=== PATIENT | female | born 1985 | race African-American/Black ===

== ENCOUNTER 2017-05-03 14:35 | Emergency (ER) | payer OTHER ==
[~2017-05-03] VITALS: Wt 69.9 kg
[~2017-05-03 14:35] MED LIST: ALBUTEROL0.09 MG/A2 IH; ALBUTEROL2.5 MG/0.5 INH; BENADRYL ALLERG25 M5 PO; CIPROFLOXACIN500 MG PO; CLARITIN10 MG PO; CLEOCIN150 MG PO; CYCLOBENZAPRINE10 MG PO; DELTASONE20 M1 PO; EES400 MG PO; ERY-TAB500 MG PO; ERYTHROCIN PO; FLEXERIL10 MG PO; FLONASE ALLERG9.9 ML NAS; HYDR12.5C PO; HYDROCODONE BIT1 T11 PO; IBU-8800 MG PO; MEDROL DOSEPAK4 MG PO; MOTRIN600 MG PO; MOTRIN800 MG PO; Motrin,Rufen800 MG PO; NAPROSYN500 MG PO; NORCO 325 MG-51 TAB PO; PARAFON FORTE500 MG PO; PEPCID20 MG PO; PNV-SELECT1 TAB PO; PREDNICOT10 MG PO; PREDNICOT20 MG PO; PREDNISONE10 MG PO; PRENATAL1 TA4 PO; ROBITUSSIN AC 110 ML PO; TRAMADOL HCL50 MG PO; TYLENOL500 MG PO; ULTRAM50 MG PO; VENTOLIN H0.09 MG/AC INH; VICODIN ES 7501 TAB PO; Xylocaine 2% Jel5 ML T
[2017-05-03 14:41] VITALS: BP 138/90
[2017-05-03] MEDS ORDERED: GOOD NEIGHBOR L10 MG PO (14:42)
[2017-05-03 15:57] LABS: BILIRUBIN NEGATIVE (NEGATIVE); BLOOD NEGATIVE (NEGATIVE); CLARITY CLEAR (CLEAR); COLOR YELLOW (YELLOW); GLUCOSE NEGATIVE (NEGATIVE); KETONE NEGATIVE (NEGATIVE); LEUKO ESTERASE NEGATIVE (NEGATIVE); NITRITE NEGATIVE (NEGATIVE); PROTEIN NEGATIVE (NEGATIVE); SPECIFIC GRAVITY <= 1.005 (1.005-1.030); UROBILINOGEN 0.2 E.U./dl (0.2-1.0)
[2017-05-03 16:06] LABS: RBC 0-2 rbc/hpf (0-2)
[2017-05-03 16:07] LABS: BACTERIA TRACE; EPITHELIAL CELLS 0-2; URINE REFLEX COMMENT NO (NO); WBC 0-2 wbc/hpf (0-5)
[2017-05-03] MEDS ORDERED: CYCLOBENZAPRINE5 M3 PO (16:36)
== END 2017-05-03 16:40 | disposition home or self-care (01) ==
LOC: ED 14:35
PROVIDERS: Nurse Practitioner Family
DX: H65.92 Unspecified nonsuppurative otitis media, left ear (principal); J45.909 Unspecified asthma, uncomplicated; I10 Essential (primary) hypertension; F17.200 Nicotine dependence, unspecified, uncomplicated; Z88.0 Allergy status to penicillin; Z88.1 Allergy status to other antibiotic agents; Z91.013 Allergy to seafood; Z79.899 Other long term (current) drug therapy

== ENCOUNTER → 2017-05-04 | Outpatient (CLI) | payer OTHER ==
[~2017-05-04] MED LIST changes: +CYCLOBENZAPRINE5 M3 PO; +GOOD NEIGHBOR L10 MG PO
[2017-05-04 15:06] LABS: BASO % 0.5 % (0.0-1.0); EOS # 0.1 10*3/uL (0.0-0.4); EOS % 2.8 % (1.0-4.0); HEMATOCRIT 33.5 % (37.0-47.0); HEMOGLOBIN 10.6 g/dl (12.0-16.0); LYMPH # 1.5 10*3/uL (1.3-4.4); LYMPH % 37.7 % (27.0-41.0); MEAN CELL VOLUME 86.8 fl (81.0-99.0); MEAN CORPUSCULAR HGB 27.5 pg (27.0-31.0); MEAN CORPUSCULAR HGB CONC 31.6 g/dl (33.0-37.0); MONO # 0.3 10*3/uL (0.1-1.0); MONO % 8.2 % (3.0-9.0); NEUT % 50.8 % (47.0-73.0); PLATELET COUNT AUTOMATED 289 10*3/uL (130-400); RED BLOOD COUNT 3.86 10*6/uL (4.10-5.10); RED CELL DISTRI WIDTH 18.6 % (0-14.5); WHITE BLOOD COUNT 3.9 10*3/uL (4.8-10.8)
[2017-05-04 15:35] LABS: ALBUMIN 3.4 gm/dl (3.1-4.5); BUN 7 mg/dl (7-24); CARBON DIOXIDE 29 mmol/L (21-32); CHLORIDE 105 mmol/L (98-107); EST GLOM FILT AFRICAN AMERICAN > 60 ml/min; GLUCOSE 74 mg/dL (65-99); POTASSIUM 3.9 mmol/L (3.5-5.1); SGOT/AST 13 IU/L (3-35); SGPT/ALT 14 U/L (12-78); SODIUM 141 mmol/L (136-145)
[2017-05-04 15:44] LABS: ALKALINE PHOSPHATASE 39 U/L (45-117); BILIRUBIN, TOTAL 0.5 mg/dl (0.2-1.0); FREE T4 0.86 ng/dl (0.76-1.46); TOTAL PROTEIN 6.9 gm/dL (6.4-8.2)
== END | disposition home or self-care (01) ==
LOC: LAB 14:33
PROVIDERS: Family Medicine
DX: M19.90 Unspecified osteoarthritis, unspecified site (principal); D50.9 Iron deficiency anemia, unspecified

== ENCOUNTER 2017-07-05 14:53 | Emergency (ER) | payer OTHER ==
[~2017-07-05] VITALS: Ht 170.1 cm; Wt 63.5 kg
[2017-07-05 15:01] VITALS: BP 147/87
[2017-07-05 15:29] LABS: BILIRUBIN NEGATIVE (NEGATIVE); BLOOD NEGATIVE (NEGATIVE); CLARITY CLEAR (CLEAR); COLOR YELLOW (YELLOW); GLUCOSE NEGATIVE (NEGATIVE); KETONE NEGATIVE (NEGATIVE); LEUKO ESTERASE NEGATIVE (NEGATIVE); NITRITE NEGATIVE (NEGATIVE); PH 5.5 (5.0-9.0); PROTEIN NEGATIVE (NEGATIVE); SPECIFIC GRAVITY <= 1.005 (1.005-1.030); UROBILINOGEN 0.2 E.U./dl (0.2-1.0)
[2017-07-05 15:41] LABS: BACTERIA TRACE; EPITHELIAL CELLS 0-2; RBC 0-2 rbc/hpf (0-2); URINE REFLEX COMMENT NO (NO); WBC 0-2 wbc/hpf (0-5)
[2017-07-05] MEDS ORDERED: MEDROL DOSEPAK4 MG PO (16:42)
[2017-07-05] MEDS ORDERED: CYCLOBENZAPRINE5 M3 PO (16:42)
== END 2017-07-05 16:52 | disposition home or self-care (01) ==
LOC: ED 14:53
PROVIDERS: Physician Assistant
DX: S39.012A Strain of muscle, fascia and tendon of lower back, initial encounter (principal); M62.838 Other muscle spasm; M54.2 Cervicalgia; M62.830 Muscle spasm of back; F17.200 Nicotine dependence, unspecified, uncomplicated; Z88.0 Allergy status to penicillin; Z88.1 Allergy status to other antibiotic agents; Z91.013 Allergy to seafood; Z79.899 Other long term (current) drug therapy; W19.XXXA Unspecified fall, initial encounter; Y93.9 Activity, unspecified; Y92.9 Unspecified place or not applicable; Y99.9 Unspecified external cause status

== ENCOUNTER → 2017-12-26 | Outpatient (CLI) | payer OTHER | END | disposition home or self-care (01) | LOC: RAD 10:38 | DX: M54.5 Low back pain (principal) ==

== ENCOUNTER 2018-02-17 20:05 | Emergency (ER) | payer OTHER ==
[~2018-02-17] VITALS: Ht 170.1 cm; Wt 68.0 kg
[2018-02-17 20:06] VITALS: BP 145/93
[2018-02-17 21:00] LABS: BILIRUBIN NEGATIVE (NEGATIVE); BLOOD NEGATIVE (NEGATIVE); CLARITY SL CLOUDY (CLEAR); COLOR YELLOW (YELLOW); GLUCOSE NEGATIVE (NEGATIVE); KETONE NEGATIVE (NEGATIVE); LEUKO ESTERASE NEGATIVE (NEGATIVE); NITRITE NEGATIVE (NEGATIVE); SPECIFIC GRAVITY 1.015 (1.005-1.030)
[2018-02-17 21:23] LABS: BACTERIA TRACE
[2018-02-17 21:24] LABS: RBC 0-2 rbc/hpf (0-2)
[2018-02-17] MEDS ORDERED: MEDROL DOSEPAK4 MG PO (22:19)
[2018-02-17] MEDS ORDERED: CYCLOBENZAPRINE5 M3 PO (22:19)
== END 2018-02-17 22:26 | disposition home or self-care (01) ==
LOC: ED 20:05
PROVIDERS: Nurse Practitioner Family
DX: S39.012A Strain of muscle, fascia and tendon of lower back, initial encounter (principal); J45.909 Unspecified asthma, uncomplicated; I10 Essential (primary) hypertension; R73.9 Hyperglycemia, unspecified; E83.51 Hypocalcemia; F10.10 Alcohol abuse, uncomplicated; Z88.0 Allergy status to penicillin; Z91.041 Radiographic dye allergy status; Z88.1 Allergy status to other antibiotic agents; Z88.8 Allergy status to other drugs, medicaments and biological substances; Z79.899 Other long term (current) drug therapy; X58.XXXA Exposure to other specified factors, initial encounter; Y93.89 Activity, other specified; Y92.89 Other specified places as the place of occurrence of the external cause; Y99.8 Other external cause status

== ENCOUNTER 2018-03-07 11:23 | Emergency (ER) | payer OTHER ==
[~2018-03-07] VITALS: Ht 170.1 cm; Wt 68.0 kg
[2018-03-07] MEDS ORDERED: ROBAXIN500 M1 PO (14:28)
[2018-03-07] MEDS ORDERED: PREDNISONE20 M1 PO (14:28)
[2018-03-07 14:30] VITALS: BP 142/78
== END 2018-03-07 14:30 | disposition home or self-care (01) ==
LOC: ED 11:23
DX: M54.41 Lumbago with sciatica, right side (principal); Z88.0 Allergy status to penicillin; Z88.1 Allergy status to other antibiotic agents; Z91.013 Allergy to seafood; Z79.899 Other long term (current) drug therapy

== ENCOUNTER 2019-07-06 18:24 | Emergency (ER) | payer MEDICAID ==
[~2019-07-06] VITALS: Ht 170.1 cm; Wt 68.0 kg
[~2019-07-06 18:24] MED LIST changes: +PREDNISONE20 M1 PO; +ROBAXIN500 M1 PO; +VISTARIL25 MG PO
[2019-07-06 18:25] VITALS: BP 135/80
[2019-07-06] MEDS ORDERED: CLINDAMYCIN HC300 MG PO (18:44)
[2019-07-06] MEDS ORDERED: ZYRTEC10 MG PO (18:44)
[2019-07-06] MEDS ORDERED: CLARITIN10 MG PO (18:44)
== END 2019-07-06 18:45 | disposition home or self-care (01) ==
LOC: ED 18:24
DX: T78.40XA Allergy, unspecified, initial encounter (principal); R51 Headache; J45.909 Unspecified asthma, uncomplicated; F17.200 Nicotine dependence, unspecified, uncomplicated; Z88.0 Allergy status to penicillin; Z88.1 Allergy status to other antibiotic agents; Z91.013 Allergy to seafood; X58.XXXA Exposure to other specified factors, initial encounter

== ENCOUNTER 2019-07-28 12:26 | Emergency (ER) | payer MEDICAID ==
[~2019-07-28] VITALS: Ht 170.1 cm; Wt 68.0 kg
[~2019-07-28 12:26] MED LIST changes: +CLINDAMYCIN HC300 MG PO; +ZYRTEC10 MG PO
[2019-07-28 12:29] VITALS: BP 121/71
[2019-07-28] MEDS ORDERED: NAPROSYN500 MG PO (13:13)
[2019-07-28] MEDS ORDERED: ROBAXIN500 M1 PO (13:13)
[2019-07-28] MEDS ORDERED: MEDROL DOSEPAK4 MG PO (13:13)
== END 2019-07-28 14:00 | disposition home or self-care (01) ==
LOC: ED 12:26
DX: M54.41 Lumbago with sciatica, right side (principal); Z88.0 Allergy status to penicillin; Z88.1 Allergy status to other antibiotic agents; Z91.041 Radiographic dye allergy status; Z91.013 Allergy to seafood; Z79.899 Other long term (current) drug therapy; Z79.2 Long term (current) use of antibiotics

== ENCOUNTER 2019-09-20 15:59 | Emergency (ER) | payer MEDICAID ==
[~2019-09-20] VITALS: Ht 170.1 cm; Wt 70.8 kg
[2019-09-20 15:59] VITALS: BP 136/76
[2019-09-20] MEDS ORDERED: PREDNISONE20 M1 PO (16:29)
== END 2019-09-20 17:33 | disposition home or self-care (01) ==
LOC: ED 15:59
DX: M54.5 Low back pain (principal); G89.29 Other chronic pain; F17.200 Nicotine dependence, unspecified, uncomplicated; Z88.0 Allergy status to penicillin; Z88.1 Allergy status to other antibiotic agents; Z88.8 Allergy status to other drugs, medicaments and biological substances; Z91.041 Radiographic dye allergy status; Z91.013 Allergy to seafood; Z79.2 Long term (current) use of antibiotics; Z79.899 Other long term (current) drug therapy

== ENCOUNTER 2019-11-19 17:19 | Emergency (ER) | payer OTHER ==
[~2019-11-19] VITALS: Ht 170.1 cm; Wt 70.3 kg
[2019-11-19 17:20] VITALS: BP 115/65
[2019-11-19 17:46] LABS: BASO % 0.4 % (0.0-1.0); HEMATOCRIT 28.9 % (37.0-47.0); LYMPH # 0.2 10*3/uL (1.3-4.4); LYMPH % 7.4 % (27.0-41.0); MEAN CORPUSCULAR HGB 26.2 pg (27.0-31.0); MEAN CORPUSCULAR HGB CONC 31.1 g/dl (33.0-37.0); MEAN PLATELET VOLUME 9.7 fl (9.6-12.3); MONO # 0.2 10*3/uL (0.1-1.0); MONO % 6.9 % (3.0-9.0); NEUT % 84.9 % (47.0-73.0); PLATELET COUNT AUTOMATED 203 10*3/uL (130-400); RED BLOOD COUNT 3.44 10*6/uL (4.10-5.10); RED CELL DISTRI WIDTH 17.4 % (0-14.5); WHITE BLOOD COUNT 2.3 10*3/uL (4.8-10.8)
[2019-11-19 18:05] LABS: ALBUMIN 3.7 gm/dl (3.1-4.5); ALKALINE PHOSPHATASE 34 U/L (45-117); BUN 5 mg/dl (7-24); CHLORIDE 106 mmol/L (98-107); CREATININE 0.89 mg/dL (0.55-1.02); POTASSIUM 3.2 mmol/L (3.5-5.1); SGOT/AST 15 IU/L (3-35); SGPT/ALT 18 U/L (12-78); SODIUM 138 mmol/L (136-145); TOTAL PROTEIN 7.2 gm/dL (6.4-8.2)
[2019-11-19 18:09] LABS: BILIRUBIN NEGATIVE (NEGATIVE); BLOOD NEGATIVE (NEGATIVE); CLARITY CLEAR (CLEAR); COLOR YELLOW (YELLOW); GLUCOSE NEGATIVE (NEGATIVE); KETONE NEGATIVE (NEGATIVE); LEUKO ESTERASE NEGATIVE (NEGATIVE); NITRITE NEGATIVE (NEGATIVE); SPECIFIC GRAVITY <= 1.005 (1.005-1.030); UROBILINOGEN 0.2 E.U./dl (0.2-1.0)
[2019-11-19 18:17] LABS: BACTERIA TRACE; EPITHELIAL CELLS 0-2
== END 2019-11-19 18:57 | disposition home or self-care (01) ==
LOC: ED 17:19
PROVIDERS: Physician Assistant
DX: J10.1 Influenza due to other identified influenza virus with other respiratory manifestations (principal); J45.909 Unspecified asthma, uncomplicated; I10 Essential (primary) hypertension; Z88.0 Allergy status to penicillin; Z88.1 Allergy status to other antibiotic agents; Z91.041 Radiographic dye allergy status; Z91.013 Allergy to seafood; Z79.899 Other long term (current) drug therapy; Z79.2 Long term (current) use of antibiotics

== ENCOUNTER 2020-01-28 11:18 | Emergency (ER) | payer OTHER ==
[2020-01-28 11:21] VITALS: BP 136/82
[2020-01-28 11:56] LABS: HEMATOCRIT 31.2 % (37.0-47.0); HEMOGLOBIN 9.5 g/dl (12.0-16.0); MEAN CORPUSCULAR HGB 25.3 pg (27.0-31.0); MEAN CORPUSCULAR HGB CONC 30.4 g/dl (33.0-37.0); MEAN PLATELET VOLUME 9.8 fl (9.6-12.3); PLATELET COUNT AUTOMATED 213 10*3/uL (130-400); RED BLOOD COUNT 3.76 10*6/uL (4.10-5.10); RED CELL DISTRI WIDTH 17.5 % (0-14.5)
[2020-01-28 11:58] LABS: WHITE BLOOD COUNT 1.4 10*3/uL (4.8-10.8)
[2020-01-28 12:08] LABS: ALBUMIN 3.9 gm/dl (3.1-4.5); ALKALINE PHOSPHATASE 39 U/L (45-117); BUN 9 mg/dl (7-24); CHLORIDE 105 mmol/L (98-107); CREATININE 0.96 mg/dL (0.55-1.02); POTASSIUM 3.7 mmol/L (3.5-5.1); SGOT/AST 14 IU/L (3-35); SGPT/ALT 19 U/L (12-78); SODIUM 137 mmol/L (136-145); TOTAL PROTEIN 7.8 gm/dL (6.4-8.2)
[2020-01-28 12:22] LABS: TARGET CELLS FEW; TOTAL CELLS COUNTED 100 #CELLS
[2020-01-28 12:23] LABS: OVALOCYTES FEW; PLATELET SUFFICIENCY NORMAL (NORMAL)
== END 2020-01-28 13:04 | disposition home or self-care (01) ==
LOC: ED 11:18
PROVIDERS: Nurse Practitioner Family
DX: B34.9 Viral infection, unspecified (principal); I10 Essential (primary) hypertension; J45.909 Unspecified asthma, uncomplicated; F17.200 Nicotine dependence, unspecified, uncomplicated; Z88.0 Allergy status to penicillin; Z88.1 Allergy status to other antibiotic agents; Z91.013 Allergy to seafood

== ENCOUNTER → 2020-01-30 | Outpatient (CLI) | payer OTHER ==
[2020-01-30 14:51] LABS: HEMATOCRIT 31.4 % (37.0-47.0); HEMOGLOBIN 9.5 g/dl (12.0-16.0); MEAN CELL VOLUME 83.7 fl (81.0-99.0); MEAN CORPUSCULAR HGB 25.3 pg (27.0-31.0); MEAN CORPUSCULAR HGB CONC 30.3 g/dl (33.0-37.0); MEAN PLATELET VOLUME 10.7 fl (9.6-12.3); PLATELET COUNT AUTOMATED 216 10*3/uL (130-400); RED BLOOD COUNT 3.75 10*6/uL (4.10-5.10); RED CELL DISTRI WIDTH 17.6 % (0-14.5); WHITE BLOOD COUNT 2.4 10*3/uL (4.8-10.8)
[2020-01-30 15:37] LABS: FREE T4 0.97 ng/dl (0.76-1.46); THYROID STIM HORMONE (HS) 0.806 uIU/ml (0.358-4.75)
[2020-01-30 15:46] LABS: ATYPICAL LYMPHS 2 % (0-0); BASOPHILS 3 % (0-1); TOTAL CELLS COUNTED 100 #CELLS
[2020-01-30 15:47] LABS: PLATELET SUFFICIENCY NORMAL (NORMAL)
[2020-01-30 15:48] LABS: OVALOCYTES FEW
== END | disposition home or self-care (01) ==
LOC: LAB 14:31
PROVIDERS: Internal Medicine
DX: D70.9 Neutropenia, unspecified (principal)

== ENCOUNTER → 2020-10-14 | Outpatient (CLI) | payer OTHER ==
[~2020-10-14] MED LIST changes: +CETIRIZINE HYDR10 MG PO; +HYDROCHLOROTH12.5 M3 PO; +PROAIR HFA8.5 GM INH
== END | disposition home or self-care (01) ==
LOC: COVID19 14:06
PROVIDERS: ATTEND Internal Medicine
DX: Z20.828 Contact with and (suspected) exposure to other viral communicable diseases (principal); J02.9 Acute pharyngitis, unspecified

== ENCOUNTER 2020-12-09 09:30 | Emergency (ER) | payer OTHER ==
[~2020-12-09] VITALS: Ht 170.1 cm; Wt 70.3 kg
[~2020-12-09 09:30] MED LIST changes: -CETIRIZINE HYDR10 MG PO; -HYDROCHLOROTH12.5 M3 PO; -PROAIR HFA8.5 GM INH
[2020-12-09 09:41] VITALS: BP 138/67
[2020-12-09] MEDS ORDERED: HYDROCHLOROTH12.5 M3 PO (09:42)
[2020-12-09] MEDS ORDERED: PROAIR HFA8.5 GM INH (09:42)
[2020-12-09] MEDS ORDERED: CETIRIZINE HYDR10 MG PO (09:43)
== END 2020-12-09 11:57 | disposition home or self-care (01) ==
LOC: ED 09:30
DX: S62.135A Nondisplaced fracture of capitate [os magnum] bone, left wrist, initial encounter for closed fracture (principal); M77.9 Enthesopathy, unspecified; Z88.0 Allergy status to penicillin; Z88.1 Allergy status to other antibiotic agents; Z91.013 Allergy to seafood; Z79.899 Other long term (current) drug therapy; X58.XXXA Exposure to other specified factors, initial encounter; Y93.89 Activity, other specified; Y92.89 Other specified places as the place of occurrence of the external cause; Y99.8 Other external cause status

== ENCOUNTER → 2021-02-05 | Outpatient (CLI) | payer OTHER ==
[~2021-02-05] MED LIST changes: +CETIRIZINE HYDR10 MG PO; +HYDROCHLOROTH12.5 M3 PO; +PREDNISONE50 MG PO; +PROAIR HFA8.5 GM INH
== END | disposition home or self-care (01) ==
LOC: RAD 18:05
PROVIDERS: ATTEND Internal Medicine
DX: M41.86 Other forms of scoliosis, lumbar region (principal)

== ENCOUNTER 2021-03-12 09:36 | Emergency (ER) | payer OTHER ==
[~2021-03-12] VITALS: Ht 170.1 cm; Wt 72.6 kg
[~2021-03-12 09:36] MED LIST changes: -PREDNISONE50 MG PO
[2021-03-12 09:43] VITALS: BP 135/84
[2021-03-12] MEDS ORDERED: PREDNISONE50 MG PO (10:19)
[2021-03-12] MEDS ORDERED: CYCLOBENZAPRINE10 MG PO (10:19)
== END 2021-03-12 10:26 | disposition home or self-care (01) ==
LOC: ED 09:36
DX: M54.42 Lumbago with sciatica, left side (principal); I10 Essential (primary) hypertension; Z88.0 Allergy status to penicillin; Z88.8 Allergy status to other drugs, medicaments and biological substances; Z91.013 Allergy to seafood; Z79.899 Other long term (current) drug therapy

== ENCOUNTER → 2021-11-30 | Outpatient (CLI) | payer OTHER ==
[~2021-11-30] MED LIST changes: +PREDNISONE50 MG PO
== END | disposition home or self-care (01) ==
LOC: COVID19 16:26
PROVIDERS: ATTEND Internal Medicine
DX: Z20.822 Contact with and (suspected) exposure to COVID-19 (principal)

== ENCOUNTER → 2021-12-07 | Outpatient (CLI) | payer OTHER | END | disposition home or self-care (01) | LOC: COVID19 15:47 | PROVIDERS: ATTEND Internal Medicine | DX: U07.1 COVID-19 (principal) ==

== ENCOUNTER 2022-03-22 13:20 | Emergency (ER) | payer OTHER ==
[~2022-03-22] VITALS: Ht 170.1 cm; Wt 65.8 kg
[2022-03-22 13:55] VITALS: BP 116/99
[2022-03-22] MEDS ORDERED: CYCLOBENZAPRINE10 MG PO (15:58)
[2022-03-22] MEDS ORDERED: PREDNISONE50 MG PO (15:58)
== END 2022-03-22 16:05 | disposition home or self-care (01) ==
LOC: ED 13:20
DX: S39.012A Strain of muscle, fascia and tendon of lower back, initial encounter (principal); Z88.0 Allergy status to penicillin; Z88.1 Allergy status to other antibiotic agents; Z91.013 Allergy to seafood; Z79.899 Other long term (current) drug therapy; Z87.891 Personal history of nicotine dependence; X58.XXXA Exposure to other specified factors, initial encounter; Y93.89 Activity, other specified; Y92.89 Other specified places as the place of occurrence of the external cause; Y99.8 Other external cause status

== ENCOUNTER 2022-11-09 21:19 | Emergency (ER) | payer OTHER | END 2022-11-09 22:02 | disposition left against medical advice (07) | LOC: ED 21:19 | DX: Z53.21 Procedure and treatment not carried out due to patient leaving prior to being seen by health care provider (principal) ==

== ENCOUNTER 2022-11-10 17:04 | Emergency (ER) | payer OTHER | END 2022-11-10 18:29 | disposition left against medical advice (07) | LOC: ED 17:04 | DX: Z53.21 Procedure and treatment not carried out due to patient leaving prior to being seen by health care provider (principal) ==

== ENCOUNTER → 2022-11-11 | Outpatient (CLI) | payer OTHER ==
[2022-11-11 14:18] LABS: BASO % 1.1 % (0.0-1.0); EOS % 1.1 % (1.0-4.0); LYMPH # 1.2 10*3/uL (1.3-4.4); LYMPH % 44.4 % (27.0-41.0); MEAN CELL VOLUME 82.7 fl (81.0-99.0); MEAN CORPUSCULAR HGB 25.3 pg (27.0-31.0); MEAN CORPUSCULAR HGB CONC 30.6 g/dl (33.0-37.0); MEAN PLATELET VOLUME 10.6 fl (9.6-12.3); MONO # 0.3 10*3/uL (0.1-1.0); MONO % 10.4 % (3.0-9.0); NEUT # 1.1 10*3/uL (2.3-7.9); NEUT % 42.6 % (47.0-73.0); PLATELET COUNT AUTOMATED 271 10*3/uL (130-400); RED BLOOD COUNT 3.87 10*6/uL (4.10-5.10); RED CELL DISTRI WIDTH 17.6 % (0-14.5); WHITE BLOOD COUNT 2.7 10*3/uL (4.8-10.8)
[2022-11-11 14:41] LABS: ALKALINE PHOSPHATASE 39 U/L (46-116); BUN 8 mg/dl (9-23); CHLORIDE 109 mmol/L (98-107); CREATININE 0.67 mg/dL (0.55-1.02); FREE T4 0.93 ng/dl (0.89-1.76); SGPT/ALT 12 U/L (10-49); SODIUM 137 mmol/L (136-145); TOTAL PROTEIN 6.9 gm/dL (6.0-8.0)
== END | disposition home or self-care (01) ==
LOC: LAB 13:54
PROVIDERS: ATTEND Internal Medicine
DX: Z11.59 Encounter for screening for other viral diseases (principal); R10.11 Right upper quadrant pain

== ENCOUNTER 2022-12-24 15:03 | Emergency (ER) | payer OTHER ==
[~2022-12-24] VITALS: Ht 170.1 cm; Wt 68.0 kg
[2022-12-24 15:08] VITALS: BP 138/82
== END 2022-12-24 17:49 | disposition home or self-care (01) ==
LOC: ED 15:03
DX: B34.9 Viral infection, unspecified (principal); Z88.0 Allergy status to penicillin; Z88.1 Allergy status to other antibiotic agents; Z91.041 Radiographic dye allergy status; Z88.8 Allergy status to other drugs, medicaments and biological substances; Z98.890 Other specified postprocedural states; F17.200 Nicotine dependence, unspecified, uncomplicated; F10.20 Alcohol dependence, uncomplicated; Z20.822 Contact with and (suspected) exposure to COVID-19

== ENCOUNTER → 2022-12-28 | Outpatient (CLI) | payer OTHER ==
[2022-12-28 16:31] LABS: BASO % 0.5 % (0.0-1.0); EOS # 0.1 10*3/uL (0.0-0.4); EOS % 1.9 % (1.0-4.0); HEMATOCRIT 33.9 % (37.0-47.0); LYMPH # 1.6 10*3/uL (1.3-4.4); LYMPH % 41.5 % (27.0-41.0); MEAN CELL VOLUME 83.7 fl (81.0-99.0); MEAN CORPUSCULAR HGB 24.7 pg (27.0-31.0); MEAN CORPUSCULAR HGB CONC 29.5 g/dl (33.0-37.0); MEAN PLATELET VOLUME 10.5 fl (9.6-12.3); MONO # 0.4 10*3/uL (0.1-1.0); MONO % 9.8 % (3.0-9.0); NEUT # 1.7 10*3/uL (2.3-7.9); PLATELET COUNT AUTOMATED 294 10*3/uL (130-400); RED BLOOD COUNT 4.05 10*6/uL (4.10-5.10); RED CELL DISTRI WIDTH 18.1 % (0-14.5); WHITE BLOOD COUNT 3.8 10*3/uL (4.8-10.8)
[2022-12-28 16:41] LABS: ALKALINE PHOSPHATASE 36 U/L (46-116); BUN 8 mg/dl (9-23); CHLORIDE 105 mmol/L (98-107); FREE T4 0.94 ng/dl (0.89-1.76); POTASSIUM 3.8 mmol/L (3.4-5.1); SGPT/ALT 16 U/L (10-49); THYROID STIM HORMONE (HS) 0.769 uIU/ml (0.550-4.780); TOTAL PROTEIN 7.2 gm/dL (6.0-8.0)
== END | disposition home or self-care (01) ==
LOC: LAB 16:07
PROVIDERS: ATTEND Internal Medicine
DX: R53.1 Weakness (principal)

== ENCOUNTER → 2023-04-20 | Outpatient (CLI) | payer OTHER | END | disposition home or self-care (01) | LOC: RAD 17:24 | PROVIDERS: ATTEND Internal Medicine | DX: M54.50 Low back pain, unspecified (principal) ==

== ENCOUNTER → 2023-05-05 | Outpatient (CLI) | payer OTHER | END | disposition home or self-care (01) | LOC: US 01:57 | PROVIDERS: ATTEND Internal Medicine | DX: N85.2 Hypertrophy of uterus (principal); N85.8 Other specified noninflammatory disorders of uterus; N92.1 Excessive and frequent menstruation with irregular cycle; R10.11 Right upper quadrant pain ==

== ENCOUNTER 2023-11-21 12:48 | Emergency (ER) | payer OTHER ==
[~2023-11-21] VITALS: Ht 170.1 cm; Wt 74.8 kg
[2023-11-21 13:17] VITALS: BP 138/69
[2023-11-21] MEDS ORDERED: SINGULAIR10 M1 PO (13:19)
[2023-11-21 14:01] LABS: HEMATOCRIT 33.6 % (37.0-47.0); MEAN CELL VOLUME 82.8 fl (81.0-99.0); MEAN CORPUSCULAR HGB 24.6 pg (27.0-31.0); MEAN CORPUSCULAR HGB CONC 29.8 g/dl (33.0-37.0); MEAN PLATELET VOLUME 9.6 fl (9.6-12.3); PLATELET COUNT AUTOMATED 201 10*3/uL (130-400); RED BLOOD COUNT 4.06 10*6/uL (4.10-5.10); RED CELL DISTRI WIDTH 17.7 % (0-14.5); WHITE BLOOD COUNT 3.2 10*3/uL (4.8-10.8)
[2023-11-21 14:03] LABS: MANUAL DIFF REFLEX YES
[2023-11-21 14:15] LABS: ACT PARTIAL THROMBO TIME 34.2 SECONDS (20.0-32.1)
[2023-11-21 14:22] LABS: ALKALINE PHOSPHATASE 52 U/L (46-116); CHLORIDE 105 mmol/L (98-107); POTASSIUM 3.3 mmol/L (3.4-5.1); SGPT/ALT 13 U/L (5-49); TOTAL PROTEIN 7.4 gm/dL (6.0-8.0)
[2023-11-21 14:23] LABS: BUN < 5 mg/dl (9-23)
[2023-11-21 14:39] LABS: PLATELET SUFFICIENCY NORMAL (NORMAL); TOTAL CELLS COUNTED 100 #CELLS
[2023-11-21] MEDS ORDERED: TAMIFLU 75MG CA75 MG PO (16:36)
== END 2023-11-21 17:03 | disposition home or self-care (01) ==
LOC: ED 12:48
PROVIDERS: Nurse Practitioner
DX: J11.1 Influenza due to unidentified influenza virus with other respiratory manifestations (principal); H92.01 Otalgia, right ear; I10 Essential (primary) hypertension; D64.9 Anemia, unspecified; R10.2 Pelvic and perineal pain; J45.909 Unspecified asthma, uncomplicated; Z88.0 Allergy status to penicillin; Z88.1 Allergy status to other antibiotic agents; Z91.041 Radiographic dye allergy status; Z91.013 Allergy to seafood; Z88.8 Allergy status to other drugs, medicaments and biological substances; F17.200 Nicotine dependence, unspecified, uncomplicated; Z20.822 Contact with and (suspected) exposure to COVID-19